=== PATIENT | male | born 1970 | race Hispanic/Latino ===

== ENCOUNTER 2021-01-17 17:43 | Emergency (ER) | payer SELFPAY ==
[2021-01-17] MEDS ORDERED: Lidocaine 1% w/Epinephrine 1:100K 20 ML VIAL ONE (18:17)
== END 2021-01-17 19:23 | disposition home or self-care (01) ==
LOC: ERS 17:43
DX: S61.431A Puncture wound without foreign body of right hand, initial encounter (principal); R58 Hemorrhage, not elsewhere classified
CPT/HCPCS: 12001

== ENCOUNTER 2021-01-30 20:41 | Emergency (ER) | payer SELFPAY | END 2021-01-30 23:01 | disposition home or self-care (01) | LOC: ERS 20:41 | DX: I72.1 Aneurysm of artery of upper extremity (principal) | CPT/HCPCS: 76999 ==

== ENCOUNTER 2021-07-18 11:03 | Emergency (ER) | payer SELFPAY ==
[2021-07-18 11:40] LABS: #Basophils 0.1 thou/uL (0.0-0.2); #Lymphocytes 1.9 thou/uL (1.20-3.40); #Monocytes 0.7 thou/uL (0.11-0.59); #Neutrophils 2.7 thou/uL (1.40-6.50); %Basophils 1.9 % (0.0-1.0); %Eosinophils 0.7 % (0.0-10.0); %Lymphocytes 34.7 % (21.0-51.0); %Monocytes 12.9 % (0.0-10.0); %Neutrophils 49.8 % (42.0-75.0); Hemoglobin 10.4 g/dL (14.0-18.0); Mean Corpuscular HGB CONC 33.8 g/dL (32.0-36.0); Mean Corpuscular Hemoglobin 36.1 pg (27.0-31.0); RBC Distribution Width 12.2 % (11.5-14.5); Red Blood Cell (RBC) Count 2.87 mill/uL (4.70-6.10); White Blood Cell (WBC) Count 5.4 thou/uL (4.8-10.8)
[2021-07-18 11:52] LABS: ALT (SGPT) 20 U/L (8-55); AST (SGOT) 64 U/L (5-34); Albumin 3.2 g/dL (3.5-5.0); Alkaline Phosphatase 97 U/L (40-110); Anion Gap 15 mmol/L (10-20); BUN (Urea Nitrogen) 24 mg/dL (8.4-25.7); Bilirubin, Total 6.1 mg/dL (0.2-1.2); Calc. Creatinine Clearance 0 mL/min (70-130); Calcium 8.8 mg/dL (7.8-10.44); Carbon Dioxide 26 mmol/L (22-29); Chloride 97 mmol/L (98-107); Globulin 4.8 g/dL (2.4-3.5); Glucose 118 mg/dL (70-105); Sodium 133 mmol/L (136-145)
[2021-07-18] MEDS ORDERED: Ondansetron PF 4 MG/2 ML Vial ONE (12:02)
[2021-07-18 12:08] LABS: MDiff Complete? YES; Mean Platelet Volume 8.6 fL (7.4-10.4); Platelet Count 89 thou/uL (130-400)
[2021-07-18 12:09] LABS: Hypochromia SLIGHT = 6-15 cells (100X) (0-5/hpf); Macrocytosis SLIGHT = 6-15 cells (100X) (0-5/hpf); Platelet Morphology Comment Appears Decreased; Polychromasia SLIGHT = 2-3 cells (100X) (0-2/hpf); Target Cells SLIGHT = 2-5 cells (100X) (0-1/hpf)
== END 2021-07-18 13:21 | disposition home or self-care (01) ==
LOC: ERS 11:03
DX: K92.0 Hematemesis (principal)
CPT/HCPCS: 36415; 71045; 80053; 85025; 94760; 96361; 96374; J2405

== ENCOUNTER 2023-07-24 16:44 | Inpatient (IN) | payer BC ==
[2023-07-24] MEDS ORDERED: Electrolyte Replacement Protocol 1 EACH IVPB SCH (17:09)
[2023-07-24 17:14] VITALS: BMI 30.9
[2023-07-24] MEDS: Sodium Chloride 0.9% 1,000 ML IV SCH (17:27)
[2023-07-24] MEDS ORDERED: Ipratropium/Albuterol 3 ML NEB NEB PRN (17:36)
[2023-07-24] MEDS ORDERED: Calcium Carbonate 500 MG ChewTAB PO PRN (17:42)
[2023-07-24] MEDS ORDERED: Ondansetron ODT 4 MG TAB PO PRN (17:44)
[2023-07-24] MEDS ORDERED: Lorazepam 2 MG/ML VIAL IM PRN (17:44)
[2023-07-24] MEDS: cefTRIAXone\\ROCEPHIN 2 GM in Sodium Chloride 0.9% 100 ML IVPB SCH (18:16)
[2023-07-24] MEDS: Magnesium 2 GM/50 ML(in water) 2 GM in Premix 1 BAG IVPB SCH (18:17)
[2023-07-24] MEDS: Potassium Phosphate 15 MMOL in Sodium Chloride 0.9% 250 ML 250 ML IVPB SCH (18:17)
[2023-07-24 19:42] LABS: Hematocrit 31.4 % (42.0-52.0); Hemoglobin 10.3 g/dL (14.0-18.0); Mean Corpuscular HGB CONC 32.8 g/dL (32.0-36.0); Mean Corpuscular Hemoglobin 29.9 pg (27.0-31.0); Mean Corpuscular Volume 91.3 fL (78.0-98.0); Mean Platelet Volume 10.2 fL (7.4-10.4); Platelet Count 203 10x3/uL (130-400); RBC Distribution Width 21.4 % (11.5-14.5); Red Blood Cell (RBC) Count 3.44 mill/uL (4.70-6.10)
[2023-07-24 20:04] LABS: PTT 35.2 sec (22.9-36.1)
[2023-07-24 20:05] LABS: INR-International Normal Ratio 1.3; Prothrombin Time 16.3 sec (12.0-14.7)
[2023-07-24] MEDS: Folic Acid 1 MG TAB PO SCH (20:46)
[2023-07-24] MEDS: Multivit, Therapeutic 1 TAB PO SCH (20:46)
[2023-07-24] MEDS: Pantoprazole 80 MG in Sodium Chloride 0.9% 100 ML IVPB SCH (21:35)
[2023-07-24] MEDS: Ondansetron PF 4 MG/2 ML Vial IVP PRN (21:35)
[2023-07-24 21:57] LABS: Hematocrit 28.6 % (42.0-52.0); Hemoglobin 9.7 g/dL (14.0-18.0); Mean Corpuscular HGB CONC 33.9 g/dL (32.0-36.0); Mean Corpuscular Hemoglobin 30.3 pg (27.0-31.0); Mean Corpuscular Volume 89.4 fL (78.0-98.0); Mean Platelet Volume 10.3 fL (7.4-10.4); Platelet Count 154 10x3/uL (130-400); RBC Distribution Width 21.2 % (11.5-14.5)
[2023-07-25 05:58] LABS: Hemoglobin 9.9 g/dL (14.0-18.0); Mean Corpuscular Hemoglobin 29.5 pg (27.0-31.0); Mean Corpuscular Volume 89.3 fL (78.0-98.0); Mean Platelet Volume 10.1 fL (7.4-10.4); Platelet Count 141 10x3/uL (130-400); RBC Distribution Width 20.4 % (11.5-14.5); Red Blood Cell (RBC) Count 3.36 mill/uL (4.70-6.10)
[2023-07-25 05:59] LABS: Hematocrit 30.8 % (42.0-52.0); Mean Corpuscular HGB CONC 32.5 g/dL (32.0-36.0); Mean Corpuscular Hemoglobin 28.3 pg (27.0-31.0); Mean Corpuscular Volume 87.3 fL (78.0-98.0); Mean Platelet Volume 10.4 fL (7.4-10.4); Platelet Count 138 10x3/uL (130-400); RBC Distribution Width 20.8 % (11.5-14.5); Red Blood Cell (RBC) Count 3.53 mill/uL (4.70-6.10)
[2023-07-25 06:15] LABS: ALT (SGPT) 17 U/L (8-55); AST (SGOT) 41 U/L (5-34); Alkaline Phosphatase 57 U/L (40-110); Anion Gap 14 mmol/L (10-20); BUN (Urea Nitrogen) 21 mg/dL (8.4-25.7); Bilirubin, Total 3.1 mg/dL (0.2-1.2); Calc. Creatinine Clearance 145 mL/min (70-130); Calcium 8.1 mg/dL (7.8-10.44); Carbon Dioxide 24 mmol/L (22-29); Chloride 108 mmol/L (98-107); Estimated GFR 106; Globulin 2.9 g/dL (2.4-3.5); Glucose 143 mg/dL (70-105); Phosphorus 2.6 mg/dL (2.3-4.7); Potassium 3.7 mmol/L (3.5-5.1); Protein, Total 5.9 g/dL (6.0-8.3); Sodium 142 mmol/L (136-145)
[2023-07-25] MEDS: Thiamine HCl 200 MG/2 ML VIAL SLOW IVP SCH (07:31)
[2023-07-25] MEDS: Pantoprazole 80 MG, Admixture Fee 1 EACH in Sodium Chloride 0.9% 100 ML IVPB SCH (08:29)
[2023-07-25] MEDS: Octreotide Acetate 1,250 MCG in Sodium Chloride 0.9% 250 ML 250 ML IVPB SCH (08:29)
[2023-07-25] MEDS: Lorazepam 1 MG TAB PO SCH (08:38)
[2023-07-25] MEDS ORDERED: Lidocaine 2% PF 5 ML VIAL ONE (10:26)
[2023-07-25] MEDS ORDERED: PROPOFOL 20 ML ONE (10:26)
[2023-07-25] MEDS ORDERED: SUCCINYLCHOLINE/SOD CL,ISO/PF 200 MG/10 ML SYRINGE FS ONE (10:37)
[2023-07-25] MEDS ORDERED: Dexamethasone 4 mg/ml Vial ONE (10:44)
[2023-07-25] MEDS ORDERED: Ondansetron PF 4 MG/2 ML Vial ONE (10:44)
[2023-07-25] MEDS ORDERED: fentaNYL 50 mcg/mL 1 mL Vial ONE (10:50)
[2023-07-25] MEDS ORDERED: Promethazine HCl 25 MG/ML VIAL ONE (11:18)
[2023-07-25] MEDS ORDERED: Ondansetron HCl/PF 4 MG/2 ML Vial IVP PRN (11:38)
[2023-07-25] MEDS ORDERED: Promethazine HCl 25 MG/ML VIAL IM PRN (11:38)
[2023-07-25] MEDS: Lorazepam 1 MG TAB PO PRN (12:53)
[2023-07-25 14:46] LABS: Hematocrit 28.2 % (42.0-52.0); Hemoglobin 9.4 g/dL (14.0-18.0); Mean Corpuscular HGB CONC 33.3 g/dL (32.0-36.0); Mean Corpuscular Hemoglobin 29.3 pg (27.0-31.0); Mean Corpuscular Volume 87.9 fL (78.0-98.0); Mean Platelet Volume 10.3 fL (7.4-10.4); Platelet Count 134 10x3/uL (130-400); RBC Distribution Width 20.1 % (11.5-14.5); Red Blood Cell (RBC) Count 3.21 mill/uL (4.70-6.10)
[2023-07-25] MEDS: Pantoprazole 40 MG VIAL IVP SCH (21:13)
[2023-07-25] MEDS: Metoprolol Tartrate 25 MG TAB PO SCH (21:13)
[2023-07-26] MEDS: Loratadine 10 MG TAB PO PRN (01:24)
[2023-07-26 06:28] LABS: ALT (SGPT) 16 U/L (8-55); AST (SGOT) 33 U/L (5-34); Albumin 2.9 g/dL (3.5-5.0); Alkaline Phosphatase 53 U/L (40-110); Anion Gap 11 mmol/L (10-20); BUN (Urea Nitrogen) 16 mg/dL (8.4-25.7); Bilirubin, Total 2.9 mg/dL (0.2-1.2); Calc. Creatinine Clearance 145 mL/min (70-130); Carbon Dioxide 20 mmol/L (22-29); Chloride 107 mmol/L (98-107); Estimated GFR 106; Globulin 2.8 g/dL (2.4-3.5); Glucose 111 mg/dL (70-105); Magnesium 1.6 mg/dL (1.6-2.6); Phosphorus 2.3 mg/dL (2.3-4.7); Potassium 3.4 mmol/L (3.5-5.1); Protein, Total 5.7 g/dL (6.0-8.3); Sodium 135 mmol/L (136-145)
[2023-07-26] MEDS: Potassium Chloride 20 MEQ in Premix 1 BAG IVPB SCH (09:00)
[2023-07-26] MEDS: Magnesium 2 GM/50 ML(in water) 2 GM in Premix 1 BAG IVPB SCH (09:08)
[2023-07-26] MEDS: Lorazepam 1 MG TAB PO SCH (09:11)
[2023-07-26 12:27] VITALS: BP 122/68; TEMP 97.6
[2023-07-26] MEDS: Potassium Chloride 20 MEQ TAB PO SCH (14:29)
[2023-07-26] MEDS ORDERED: Lorazepam 1 MG TAB PO PRN (17:44)
[2023-07-27] MEDS ORDERED: Lorazepam 0.5 MG TAB PO PRN (17:44)
[2023-07-27] MEDS ORDERED: Thiamine 100 MG TAB PO SCH (17:45)
== END 2023-07-26 15:58 | disposition home or self-care (01) | DRG 381 ==
LOC: CCU 16:44 → 2SW 07-25 22:14
PROVIDERS: ADMIT Internal Medicine; ATTEND Internal Medicine
PROC: 0DC68ZZ Extirpation of Matter from Stomach, Via Natural or Artificial Opening Endoscopic (ICD-10-PCS; principal; 2023-07-25)
DX: K22.11 Ulcer of esophagus with bleeding (principal); D62 Acute posthemorrhagic anemia; F10.239 Alcohol dependence with withdrawal, unspecified; K76.6 Portal hypertension; F41.9 Anxiety disorder, unspecified; I48.0 Paroxysmal atrial fibrillation; E83.42 Hypomagnesemia; E83.39 Other disorders of phosphorus metabolism; K70.30 Alcoholic cirrhosis of liver without ascites; Z79.899 Other long term (current) drug therapy; Z79.82 Long term (current) use of aspirin; Z86.718 Personal history of other venous thrombosis and embolism; Z87.891 Personal history of nicotine dependence; K31.89 Other diseases of stomach and duodenum
CPT/HCPCS: 36415; 36416; 36430; 80053; 80307; 83605; 83690; 83735; 83880; 84100; 84484; 85025; 85027; 85610; 85730; 86850; 86900; 86901; 93005; C9113; J0696; J1100; J2001; J2354; J2405; J2550; J2704; J3010; J3411; J3475; J3480; J3490; J7050; P9016